=== PATIENT | male | born 1945 | race Caucasian/White ===

== ENCOUNTER → 2020-07-25 | Outpatient (CLI) | payer MEDICARE, OTHER | LOC: LAB SHORT 12:05 → LAB 12:05 | DX: R10.2 Pelvic and perineal pain (principal) | CPT/HCPCS: 87086 ==

== ENCOUNTER 2022-04-19 09:53 | Day surgery (SDC) | payer MEDICARE, OTHER ==
[~2022-04-19] VITALS: Ht 177.8 cm; Wt 89.3 kg
[~2022-04-19 09:53] MED LIST: ALEN70 PO; CALCIUM 500 MG1 EAC2 PO; DEPO-TESTO200 MG/12 INJ; FOLI1 PO; GLUCHON PO; LEVOTHYROXINE100 MC2 PO; LEVOTHYROXINE13 MCG; LOSA25 PO; METTREX2.5 PO; OMEP20ER PO; PRED1 PO; PROP10 PO; TRAZ50 PO; VITAMIN B125000 MC1 INJ
--- NOTE | 2022-04-19 10:18 | NUR ---
Ambulatory in Day Surgery History, Chart, Medications and Allergies reviewed before start of procedure.Pre-Op teaching done. Pt verbalizes understanding.
--- NOTE | 2022-04-19 19:48 | NUR ---
SHIFT SUMMARY PT HAS DONE WELL TODAY. AFTER SPINAL WORE OFF, WORKED w/ THERAPY THEN SAT UP IN THE CHAIR UNTIL AFTER DINNER. SHORT WALK & BATHROOM TRIP BEFORE BACK TO BED. PAIN WELL CONTROLLED. EATING, DRINKING, & VOIDING.
[2022-04-20 05:15] LABS: BASOPHILS ABSOLUTE AUTO 0.06 K/mm3 (0.00-0.23); BASOPHILS PERCENT AUTO 1 % (0-2); EOSINOPHILS ABSOLUTE AUTO 0.19 K/mm3 (0.00-0.68); EOSINOPHILS PERCENT AUTO 2 % (0-6); Hematocrit 36.8 % (37.0-53.0); Hemoglobin 12.5 g/dL (13.5-17.5); IMMATURE GRAN ABSOLUTE AUTO 0.04 K/mm3 (0.00-0.10); IMMATURE GRAN PERCENT AUTO 0 % (0-1); LYMPHOCYTES ABSOLUTE AUTO 2.53 K/mm3 (0.84-5.20); LYMPHOCYTES PERCENT AUTO 25 % (21-46); MONOCYTES ABSOLUTE AUTO 1.23 K/mm3 (0.16-1.47); MONOCYTES PERCENT AUTO 12 % (4-13); Mean Corpuscular HGB 32.3 pg (26.0-34.0); Mean Corpuscular Volume 95 fL (80-100); Mean Platelet Volume 10.8 fL (9.1-12.4); NEUTROPHILS ABSOLUTE AUTO 6.09 K/mm3 (1.96-9.15); NEUTROPHILS PERCENT AUTO 60 % (41-73); Platelet Count 176 K/mm3 (150-400); RDW Coefficient Variation 13.2 % (11.7-14.2); RDW Standard Deviation 46.5 fL (35.1-46.3); Red Blood Cell Count 3.87 M/mm3 (4.30-5.90); White Blood Cell Count 10.14 K/mm3 (4.00-11.30)
[2022-04-20 05:45] LABS: Magnesium, Blood 1.8 mg/dL (1.6-2.4)
[2022-04-20 05:48] LABS: Bun/Creatinine Ratio 11.6 (12.0-20.0); Calcium, Blood 8.4 mg/dL (8.5-10.1); Creatinine, Blood 1.21 mg/dL (0.60-1.20); Potassium, Blood 3.9 mmol/L (3.5-5.5)
--- NOTE | 2022-04-20 05:55 | NUR ---
SUMMARY PT AMBULATORY WITH SBA AND WALKER.PAIN CONTROLLED WITH PO PAIN MEDS.VOIDING WITHOUT DIFF. PLANS FOR DISCHARGE TODAY.
[2022-04-20] MEDS ORDERED: ASPI81CH PO (10:47)
[2022-04-20] MEDS ORDERED: OXYC5 PO (10:48)
[2022-04-20] MEDS ORDERED: PROM25 PO (10:48)
[2022-04-20] MEDS ORDERED: SULTRIDS PO (10:48)
--- NOTE | 2022-04-20 11:58 | NUR ---
DISCHARGE PATIENT CLEARED THERAPY WELL. EATING, DRINKING, & VOIDING WELL. PAIN MANAGED PER EMAR. AQUACEL DRESSING TO R KNEE, C/D/I. DISCUSSED DISCHARGE INSTRUCTIONS, SENT WITH PATIENT. SENT AQUACEL DRESSINGS WITH PATIENT. ESCORTED OUT VIA W/C.
--- NOTE | 2022-04-20 12:32 | NUR ---
THIS RN REVIEWED STUDENT NURSES CHARTING AND AGREES WITH DOCUMENTATION.
== END 2022-04-20 11:55 | disposition home or self-care (01) ==
LOC: ORSCMMR 09:53 → SURS 13:38 → ORSCMMR 04-20 11:55
PROVIDERS: Orthopaedic Surgery
PROC: 0SRC0J9 Replacement of Right Knee Joint with Synthetic Substitute, Cemented, Open Approach (ICD-10-PCS; principal; 2022-04-19 10:45)
DX: M17.11 Unilateral primary osteoarthritis, right knee (principal); I10 Essential (primary) hypertension; E11.9 Type 2 diabetes mellitus without complications; K21.9 Gastro-esophageal reflux disease without esophagitis; E03.9 Hypothyroidism, unspecified; M35.3 Polymyalgia rheumatica; Z79.899 Other long term (current) drug therapy
CPT/HCPCS: 36415; 73560-RT; 80048; 82947; 83735; 85025; 97110; 97110-CQ; 97116; 97116-CQ; 97162; 97530-CQ; A9270; C1713; C1776; J0171; J0690; J0735; J1885; J2370; J2405; J2704; J2795; J3010; J7120; J7512

== ENCOUNTER 2022-10-19 12:44 | Day surgery (SDC) | payer MEDICARE, OTHER ==
[~2022-10-19] VITALS: Ht 177.8 cm; Wt 85.1 kg
[~2022-10-19 12:44] MED LIST changes: +ASPI81CH PO; +OXYC5 PO; +PROM25 PO; +SULTRIDS PO
--- NOTE | 2022-10-19 13:10 | NUR ---
10/19/22 1310 Cinthya Schroeder PER PT PNU AND ABCESS LAST WEEK IN [facility]. GIVEN 30 DAYS OF AUGMENTIN, STILL TAKING. PER DR. FELISHA THOMPSON NEB
[2022-10-19] MEDS ORDERED: METFORMIN HCL500 M2 PO (13:13)
[2022-10-19] MEDS ORDERED: AMOX-CLAV 875-1 EAC5 PO (13:14)
[2022-10-19 14:39] VITALS: BP 142/85
== END 2022-10-19 14:51 | disposition home or self-care (01) ==
LOC: ORSCSDS 12:44
PROVIDERS: Ophthalmology
PROC: 08RJ3JZ Replacement of Right Lens with Synthetic Substitute, Percutaneous Approach (ICD-10-PCS; principal; 2022-10-19 14:00)
DX: E11.36 Type 2 diabetes mellitus with diabetic cataract (principal); I10 Essential (primary) hypertension; K21.9 Gastro-esophageal reflux disease without esophagitis; J44.9 Chronic obstructive pulmonary disease, unspecified; E07.9 Disorder of thyroid, unspecified; M35.3 Polymyalgia rheumatica; Z79.84 Long term (current) use of oral hypoglycemic drugs; Z79.899 Other long term (current) drug therapy
CPT/HCPCS: 82947; J2250; J3010; J3301; J7040; V2632

== ENCOUNTER 2022-10-26 12:53 | Day surgery (SDC) | payer MEDICARE, OTHER ==
[~2022-10-26] VITALS: Ht 177.8 cm; Wt 84.6 kg
[~2022-10-26 12:53] MED LIST changes: +AMOX-CLAV 875-1 EAC5 PO; +METFORMIN HCL500 M2 PO
--- NOTE | 2022-10-26 13:06 | NUR ---
10/26/22 1306 Yoly Bhandari TETRACAINE TO LEFT EYE AT 1306 PLEDGET TO LEFT EYE AT 1307 BY [facility].PKB
[2022-10-26 14:32] VITALS: BP 128/87
== END 2022-10-26 14:51 | disposition home or self-care (01) ==
LOC: ORSCSDS 12:53
PROVIDERS: Ophthalmology
PROC: 08RK3JZ Replacement of Left Lens with Synthetic Substitute, Percutaneous Approach (ICD-10-PCS; principal; 2022-10-26 14:00)
DX: E11.36 Type 2 diabetes mellitus with diabetic cataract (principal); H25.12 Age-related nuclear cataract, left eye; H52.202 Unspecified astigmatism, left eye; K21.9 Gastro-esophageal reflux disease without esophagitis; J44.9 Chronic obstructive pulmonary disease, unspecified; I10 Essential (primary) hypertension; Z96.1 Presence of intraocular lens; Z87.891 Personal history of nicotine dependence; Z79.84 Long term (current) use of oral hypoglycemic drugs; Z79.899 Other long term (current) drug therapy
CPT/HCPCS: 82947; J2250; J3010; J3301; J7040; V2632

== ENCOUNTER → 2023-01-18 | Outpatient (CLI) | payer MEDICARE, OTHER | END | disposition home or self-care (01) | LOC: LAB 17:00 → LAB SHORT 17:00 | DX: R05.8 Other specified cough (principal) | CPT/HCPCS: 87070; 87077; 87186; 87205 ==

== ENCOUNTER → 2024-06-16 | Outpatient (CLI) | payer MEDICARE, OTHER | LOC: LAB SHORT 07:27 → PLD 07:27 | DX: B35.1 Tinea unguium (principal); L60.2 Onychogryphosis | CPT/HCPCS: 88305; 88312 ==

== ENCOUNTER 2024-06-24 11:59 | Emergency (ER) | payer MEDICARE, OTHER ==
[~2024-06-24] VITALS: Ht 177.8 cm; Wt 83.9 kg
[2024-06-24 12:31] VITALS: BP 154/100
[2024-06-24 14:01] LABS: BASOPHILS ABSOLUTE AUTO 0.04 K/mm3 (0.00-0.23); BASOPHILS PERCENT AUTO 0 % (0-2); EOSINOPHILS ABSOLUTE AUTO 0.07 K/mm3 (0.00-0.68); EOSINOPHILS PERCENT AUTO 1 % (0-6); Hemoglobin 12.4 g/dL (13.5-17.5); IMMATURE GRAN ABSOLUTE AUTO 0.08 K/mm3 (0.00-0.10); IMMATURE GRAN PERCENT AUTO 1 % (0-1); LYMPHOCYTES ABSOLUTE AUTO 1.85 K/mm3 (0.84-5.20); LYMPHOCYTES PERCENT AUTO 17 % (21-46); MONOCYTES ABSOLUTE AUTO 0.96 K/mm3 (0.16-1.47); MONOCYTES PERCENT AUTO 9 % (4-13); Mean Corpuscular HGB Conc 33.5 g/dL (31.5-36.5); Mean Corpuscular Volume 93 fL (80-100); Mean Platelet Volume 10.8 fL (9.1-12.4); NEUTROPHILS ABSOLUTE AUTO 8.06 K/mm3 (1.96-9.15); NEUTROPHILS PERCENT AUTO 73 % (41-73); Platelet Count 200 K/mm3 (150-400); RDW Coefficient Variation 13.4 % (11.7-14.2); RDW Standard Deviation 45.7 fL (35.1-46.3); White Blood Cell Count 11.06 K/mm3 (4.00-11.30)
[2024-06-24 14:33] LABS: Albumin, Blood 3.7 g/dL (3.4-5.0); Albumin/Globulin Ratio 1.1 (0.8-1.8); Bilirubin, Total 0.5 mg/dL (0.1-1.0); Bun/Creatinine Ratio 15.4 (12.0-20.0); Calcium, Blood 8.7 mg/dL (8.5-10.1); Creatinine, Blood 1.3 mg/dL (0.60-1.20); Globulin, Blood 3.4 g/dL (2.2-4.0); Potassium, Blood 4.3 mmol/L (3.5-5.5); Total Protein, Blood 7.1 g/dL (6.4-8.2)
[2024-06-24] MEDS ORDERED: NS 1,000 ML IV SCH (14:55)
== END 2024-06-24 16:27 | disposition home or self-care (01) ==
LOC: ER 11:59
PROVIDERS: Physician Assistant
DX: R55 Syncope and collapse (principal); R79.89 Other specified abnormal findings of blood chemistry; Z88.8 Allergy status to other drugs, medicaments and biological substances; Z88.5 Allergy status to narcotic agent; Z79.84 Long term (current) use of oral hypoglycemic drugs; Z79.899 Other long term (current) drug therapy
CPT/HCPCS: 70450; 80053; 85025; 93005; 93010; 96360; 99284-25; J7030

== ENCOUNTER 2024-12-25 12:39 | Emergency (ER) | payer MEDICARE, OTHER ==
[~2024-12-25] VITALS: Ht 177.8 cm; Wt 81.7 kg
[2024-12-25 13:25] LABS: BASOPHILS ABSOLUTE AUTO 0.06 K/mm3 (0.00-0.23); BASOPHILS PERCENT AUTO 0 % (0-2); EOSINOPHILS ABSOLUTE AUTO 0.03 K/mm3 (0.00-0.68); EOSINOPHILS PERCENT AUTO 0 % (0-6); Hematocrit 34.4 % (37.0-53.0); Hemoglobin 11.9 g/dL (13.5-17.5); IMMATURE GRAN ABSOLUTE AUTO 0.10 K/mm3 (0.00-0.10); IMMATURE GRAN PERCENT AUTO 1 % (0-1); LYMPHOCYTES ABSOLUTE AUTO 1.57 K/mm3 (0.84-5.20); LYMPHOCYTES PERCENT AUTO 10 % (21-46); MONOCYTES ABSOLUTE AUTO 2.48 K/mm3 (0.16-1.47); MONOCYTES PERCENT AUTO 16 % (4-13); Mean Corpuscular HGB Conc 34.6 g/dL (31.5-36.5); Mean Corpuscular Volume 90 fL (80-100); NEUTROPHILS ABSOLUTE AUTO 11.51 K/mm3 (1.96-9.15); NEUTROPHILS PERCENT AUTO 73 % (41-73); NRBC ABSOLUTE 0.00 K/mm3 (0.00-0.02); NRBC Auto 0.0 /100 WBC (0.0-0.2); Platelet Count 205 K/mm3 (150-400); RDW Coefficient Variation 13.1 % (11.7-14.2); RDW Standard Deviation 43.2 fL (35.1-46.3)
[2024-12-25 13:58] LABS: Alanine Aminotransfer (ALT/SGP 17.0 U/L (12-78); Albumin, Blood 3.3 g/dL (3.4-5.0); Albumin/Globulin Ratio 0.8 (0.8-1.8); Anion Gap 8.0 mmol/L (3-11); Aspartate Aminotrans (AST/SGOT 18.0 U/L (12-37); Bilirubin, Total 0.7 mg/dL (0.1-1.0); Blood Urea Nitrogen 13.0 mg/dL (8-24); CO2, Blood 25.0 mmol/L (21-32); Calcium, Blood 8.9 mg/dL (8.5-10.1); Chloride, Blood 99.0 mmol/L (98-108); Creatinine, Blood 1.26 mg/dL (0.60-1.20); Globulin, Blood 4.3 g/dL (2.2-4.0); Glucose, Blood 154.0 mg/dL (70-99); Potassium, Blood 4.1 mmol/L (3.5-5.5); Sodium, Blood 128.0 mmol/L (136-145); Total Protein, Blood 7.6 g/dL (6.4-8.2)
[2024-12-25 16:47] LABS: Source, Urine Clean Catch
[2024-12-25 16:49] LABS: Color, Urine Amber (P-Yellow); Glucose Qualitative, Urine 3+ (Neg); Ketones, Urine 1+ (Neg); Leukocyte Esterase, Urine 1+ (Neg); Protein, Urine 2+ (Neg); Specific Gravity, Urine 1.020 (1.003-1.022); Urobilinogen, Urine 1+ (Normal)
[2024-12-25 16:58] VITALS: BP 101/66
[2024-12-25 17:17] LABS: Bilirubin, Urine 1+ (Neg)
[2024-12-25 17:18] LABS: Red Blood Cells, Urine 0-2 /hpf (0-2)
== END 2024-12-25 18:00 | disposition left against medical advice (07) ==
LOC: ER 12:39
PROVIDERS: Student in an Organized Health Care Education/Training Program
DX: R55 Syncope and collapse (principal); Z53.29 Procedure and treatment not carried out because of patient's decision for other reasons
CPT/HCPCS: 71046; 80053; 81001; 83880; 85025; 87086; 93005; 93010; 99282-25

== ENCOUNTER → 2025-01-20 | Outpatient (CLI) | payer MEDICARE, OTHER | LOC: LAB 07:41 → LAB SHORT 07:41 | DX: L30.8 Other specified dermatitis (principal); L90.5 Scar conditions and fibrosis of skin | CPT/HCPCS: 88305; 88312 ==